=== PATIENT | female | born 1985 | race Two or more races ===

== ENCOUNTER 2020-01-10 12:40 | Emergency (ER) | payer MEDICAID ==
--- NOTE | 2020-01-10 13:11 | ER Document Report ---
ED Medical Screen (RME) - General Chief Complaint: Vag Bleeding, +preg <12wks Stated Complaint: VAGINAL BLEEDING Time Seen by Provider: 01/10/20 12:49 Mode of Arrival: Ambulatory Information source: Patient Notes: Patient presents G3, P2 about 9 weeks . Patient reports vaginal bleeding that started yesterday with low back pain. Patient denies any urinary symptoms. I have greeted and performed a rapid initial assessment of this patient. A comprehensive ED assessment and evaluation of the patient, analysis of test results and completion of the medical decision making process will be conducted by additional ED providers. - Related Data Allergies/Adverse Reactions: No Known Allergies Allergy (Verified 01/10/20 12:48) Physical Exam - Vital signs Vitals: Temp Pulse Resp BP Pulse Ox 97.7 F 102 H 16 130/70 H 99 01/10/20 12:45 01/10/20 12:45 01/10/20 12:45 01/10/20 12:45 01/10/20 12:45 - General General appearance: Appears well, Alert - Back Back: Tender - Lower lumbar tenderness Course - Re-evaluation Re-evalutation: 01/10/20 13:11 Attempted use of [employer] services via phone as well as [employer] device, [employer] laminator services not presently working, patient spouse translated in triage - Vital Signs Vital signs: Temp Pulse Resp BP Pulse Ox 97.7 F 102 H 16 130/70 H 99 01/10/20 12:45 01/10/20 12:45 01/10/20 12:45 01/10/20 12:45 01/10/20 12:45
[2020-01-10 13:31] LABS: ABSOLUTE EOSINOPHILS # (AUTO) 0.1 10^3/uL (0.0-0.6); ABSOLUTE LYMPHOCYTES (AUTO) 1.5 10^3/uL (0.5-4.7); ABSOLUTE MONOCYTES (AUTO) 0.3 10^3/uL (0.1-1.4); ABSOLUTE NEUT (AUTO) 4.9 10^3/uL (1.7-8.2); BASOPHILS % (AUTO) 0.5 % (0-2); HEMATOCRIT 34.5 % (36.0-47.0); HEMOGLOBIN 11.4 g/dL (12.0-15.5); LYMPHOCYTES % (AUTO) 21.3 % (13-45); MEAN CORPUSCULAR HEMOGLOBIN 25.5 pg (27.0-33.4); MEAN CORPUSCULAR VOLUME 77 fl (80-97); MONOCYTES % (AUTO) 4.8 % (3-13); PLATELET COUNT 253 10^3/uL (150-450); RED BLOOD COUNT 4.47 10^6/uL (3.72-5.28); RED CELL DISTRIBUTION WIDTH 15.5 % (11.5-14.0); SEGMENTED NEUTROPHILS % (AUTO) 72.4 % (42-78); TOTAL CELLS COUNTED % (AUTO) 100 %; WHITE BLOOD COUNT 6.8 10^3/uL (4.0-10.5)
[2020-01-10 14:25] LABS: APPEARANCE,URINE SLIGHTLY-CLOUDY; BILIRUBIN,URINE NEGATIVE (NEGATIVE); COLOR,URINE YELLOW; GLUCOSE, URINE NEGATIVE (NEGATIVE); KETONES,URINE NEGATIVE (NEGATIVE); LEUKOCYTE ESTERASE,URINE TRACE (NEGATIVE); NITRITE,URINE NEGATIVE (NEGATIVE); PROTEIN,URINE NEGATIVE (NEGATIVE); URINE SPECIFIC GRAVITY 1.009; UROBILINOGEN,URINE NEGATIVE mg/dL (<2.0)
--- NOTE | 2020-01-10 15:00 | RADIOLOGY REPORT (SQ) ---
EXAM DESCRIPTION: U/S [id number] TRNABD 1GES W/ODOP IMAGES COMPLETED DATE/TIME: 01/10/2020 2:23 pm REASON FOR STUDY: vag bleeding, low back pain COMPARISON: None. TECHNIQUE: Transabdominal static and realtime grayscale images acquired of the pelvis. Additional se lected spectral and color Doppler images recorded. All images stored on PACs. bHCG: Pending. CLINICAL DATES: LMP 11/09/2019. 8 weeks 6 days. LIMITATIONS: None. FINDINGS: FETUS: Single Living intrauterine . ULTRASOUND EGA: 9 weeks 1 day. ULTRASOUND JENNIFER: 08/13/2020 EFW: Not applicable less than 20 weeks. CRL: 2.4 cm. FHR: 189 beats per minute. SURVEY: Too early to assess. AMNIOTIC FLUID: Adequate amount. PLACENTA: Not yet developed due to early gestation. SUBCHORIONIC BLEED: No SIZE OF BLEED: Not applicable. UTERUS: Possible 3 x 3.4 x 2 cm uterine fibroid. CERVICAL LENGTH: 2.4 cm. Closed. RIGHT ADNEXA: Normal ovary with normal vascular flow. 3.7 x 2.8 x 2 cm. No adnexal free fluid. No adnexal masses. LEFT ADNEXA: Ovary not seen. No adnexal free fluid. No adnexal masses. FREE FLUID: None. OTHER: No other significant finding. IMPRESSION: LIVING INTRAUTERINE . EGA 9 weeks 1 day. Trimester of : First trimester - 0 to 13 weeks. TECHNICAL DOCUMENTATION: JOB ID: [id number] [email or web address]- All Rights Reserved rev-08/27 Reading location - IP/workstation name: [email or web address]
--- NOTE | 2020-01-10 15:25 | ER Document Report ---
ED General - General Chief Complaint: OB Problem (<20wks) Stated Complaint: VAGINAL BLEEDING Time Seen by Provider: 01/10/20 12:49 Mode of Arrival: Ambulatory - HPI Notes: Patient is a 34-year-old female, G3, P2 at approximately 9 weeks gestation, who presents to the emergency department for evaluation of vaginal bleeding and pain. She is had some lower abdominal cramping as well as some low back pain. She states that she has had some brown blood, particularly when she wipes after urination. She denies any fevers or chills. No dysuria, hematuria noted. No bright red bleeding. She states she really only noticed blood when she goes to the bathroom. She has not yet seen OB, she has an appointment next week with the health department - Related Data Allergies/Adverse Reactions: No Known Allergies Allergy (Verified 01/10/20 12:48) Home Medications: None Past Medical History - General Information source: Patient - Social History Smoking Status: Never Smoker Chew tobacco use (# tins/day): No Frequency of alcohol use: None Drug Abuse: None Family History: Reviewed & Not Pertinent Patient has homicidal ideation: No Past Surgical History: Reports: None Review of Systems - Review of Systems Constitutional: No symptoms reported EENT: No symptoms reported Cardiovascular: No symptoms reported Respiratory: No symptoms reported Gastrointestinal: No symptoms reported Genitourinary: No symptoms reported Female Genitourinary: See HPI Musculoskeletal: No symptoms reported Skin: No symptoms reported Neurological/Psychological: No symptoms reported -: Yes All other systems reviewed and negative Physical Exam - Vital signs Vitals: Temp Pulse Resp BP Pulse Ox 97.7 F 102 H 16 130/70 H 99 01/10/20 12:45 01/10/20 12:45 01/10/20 12:45 01/10/20 12:45 01/10/20 12:45 - Notes Notes: Vital signs reviewed, please refer to chart. Head is normocephalic, atraumatic. Pupils equal round, reactive to light. Neck is supple without meningismus. Heart is regular rate and rhythm. Lungs are clear to auscultation bilaterally. Abdomen is soft, nontender, normoactive bowel sounds throughout. Extremities without cyanosis, clubbing. Posterior calves are nontender. Peripheral pulses are equal. Skin is warm and dry. Patient is awake, alert, neurological exam is nonfocal. Course - Re-evaluation Re-evalutation: 01/10/20 15:23 Patient is a G3, P2 presents to the emergency department for evaluation of vaginal bleeding. She states is really only scant at this time, particularly when she goes to the bathroom. Her work appears unremarkable. She is told to follow pelvic rest instructions, follow-up with the health department then OB next week. She understands that if she starts having increased bleeding, increased pain, fevers, or any other new or concerning symptoms, she should return immediately to the emergency department for evaluation. - Vital Signs Vital signs: Temp Pulse Resp BP Pulse Ox 97.7 F 102 H 16 130/70 H 99 01/10/20 12:52 01/10/20 12:45 01/10/20 12:45 01/10/20 12:45 01/10/20 12:45 - Laboratory Result Diagrams: 01/10/20 13:15 Laboratory results interpreted by me: 01/10/20 01/10/20 01/10/20 13:15 13:15 13:50 Hgb 11.4 L Hct 34.5 L MCV 77 L MCH 25.5 L RDW 15.5 H Beta HCG, Quant 481710.00 H Urine Blood SMALL H Ur Leukocyte Esterase TRACE H Urine Ascorbic Acid 20 H - Diagnostic Test Radiology reviewed: Image reviewed, Reports reviewed Radiology results interpreted by me: 01/10/20 15:23 Obstetrics Ultrasound 01/10/20 13:10 IMPRESSION: LIVING INTRAUTERINE . EGA 9 weeks 1 day. Trimester of : First trimester - 0 to 13 weeks. Discharge - Discharge Clinical Impression: First trimester bleeding Condition: Stable Disposition: HOME, SELF-CARE Instructions: Bleeding During Early ([facility]) Additional Instructions: Stay well-hydrated. Pelvic rest. Follow-up with the health department/OB next week. If you develop bleeding heavier than 1 pad an hour, increased pain, fevers, or any other new or concerning symptoms, please return immediately to the emergency department for evaluation.
[2020-01-10 16:18] VITALS: BP 109/62
== END 2020-01-10 16:10 | disposition home or self-care (01) ==
LOC: ER 12:40
DX: O20.9 Hemorrhage in early pregnancy, unspecified (principal); R10.30 Lower abdominal pain, unspecified; M54.5 Low back pain; Z3A.09 9 weeks gestation of pregnancy
CPT/HCPCS: 36415; 76801; 81001; 84702; 85025; 86900; 86901; 99284

== ENCOUNTER 2020-01-27 12:29 | Emergency (ER) | payer SELFPAY ==
--- NOTE | 2020-01-27 12:49 | ER Document Report ---
ED Medical Screen (RME) - General Chief Complaint: Vaginal Bleeding Stated Complaint: VAGINAL BLEEDING Time Seen by Provider: 01/27/20 12:36 Mode of Arrival: Ambulatory Information source: Patient, Relative Notes: 34-year-old female presented to ED for complaint of increasing bleeding and cramping. She states she is 11 weeks . She has been spotting for about 2 weeks. She states she has soaked 2 pads today since morning. She states she is also wearing 3 pair of underwear because she does not always wear pads. She states that her cramping has increased to a level 4. She states she has passed a couple clots today. She states she does not smoke drink use any drugs. She does not work she lives with her family does not have any past medical or surgical history. She states she is 4 para 2 with 1 miscarriage. I have greeted and performed a rapid initial assessment of this patient. A comprehensive ED assessment and evaluation of the patient, analysis of test results and completion of medical decision making process will be conducted by an additional ED providers. - Related Data Allergies/Adverse Reactions: No Known Allergies Allergy (Verified 01/10/20 12:48) Past Medical History - Social History Chew tobacco use (# tins/day): No Drug Abuse: None Physical Exam - Vital signs Vitals: Temp Pulse Resp BP Pulse Ox 98.2 F 122 H 18 121/76 98 01/27/20 12:35 01/27/20 12:35 01/27/20 12:35 01/27/20 12:35 01/27/20 12:35 Course - Vital Signs Vital signs: Temp Pulse Resp BP Pulse Ox 98.2 F 122 H 18 121/76 98 01/27/20 12:35 01/27/20 12:35 01/27/20 12:35 01/27/20 12:35 01/27/20 12:35
[2020-01-27 13:38] LABS: APPEARANCE,URINE CLEAR; BILIRUBIN,URINE NEGATIVE (NEGATIVE); COLOR,URINE YELLOW; GLUCOSE, URINE NEGATIVE (NEGATIVE); KETONES,URINE NEGATIVE (NEGATIVE); LEUKOCYTE ESTERASE,URINE NEGATIVE (NEGATIVE); NITRITE,URINE NEGATIVE (NEGATIVE); PROTEIN,URINE 30 mg/dL (NEGATIVE); URINE SPECIFIC GRAVITY 1.002; UROBILINOGEN,URINE NEGATIVE mg/dL (<2.0)
--- NOTE | 2020-01-27 14:05 | RADIOLOGY REPORT (SQ) ---
EXAM DESCRIPTION: U/S 1TRIMESTER/1GEST W/DOPPLER IMAGES COMPLETED DATE/TIME: 01/27/2020 1:32 pm REASON FOR STUDY: 11 weeks bleeding cramping passing clots COMPARISON: None. TECHNIQUE: Transabdominal static and realtime grayscale images acquired of the pelvis. Additional se lected spectral and color Doppler images recorded. All images stored on PACs. bHCG: Not available CLINICAL DATES: Last menses 11/09/2019 (11 weeks 2 days) LIMITATIONS: None. FINDINGS: FETUS: Single Living intrauterine . ULTRASOUND EGA: 14 weeks 4 days ULTRASOUND JENNIFER: 08/13/2020 EFW: Not applicable less than 20 weeks. CRL: 4.8 cm FHR: 187 beats per minute. SURVEY: Too early to assess. AMNIOTIC FLUID: Adequate amount. PLACENTA: Not yet developed due to early gestation. SUBCHORIONIC BLEED: No SIZE OF BLEED: Not applicable. UTERUS: No masses. No anomalies. Uterus is 12 by by 9 cm CERVICAL LENGTH: 3 cm, Closed. RIGHT ADNEXA: Normal ovary with normal vascular flow. Right ovary 3.3 x 2.4 x 1.5 cm. No adnexal fr ee fluid.No adnexal masses. LEFT ADNEXA: Normal ovary with normal vascular flow. Left ovary 2 x 2.3 x 1.7 cm. No adnexal free f luid.No adnexal masses. FREE FLUID: None. OTHER: No other significant finding. IMPRESSION: LIVING INTRAUTERINE . EGA 14 weeks 4 days Trimester of : Second trimester - 13 weeks 1 day to 27 weeks 6 days. TECHNICAL DOCUMENTATION: JOB ID: [id number] [employer]- All Rights Reserved rev-08/27 Reading location - IP/workstation name: [id number]
[2020-01-27 14:18] LABS: ABSOLUTE LYMPHOCYTES (AUTO) 1.5 10^3/uL (0.5-4.7); ABSOLUTE MONOCYTES (AUTO) 0.6 10^3/uL (0.1-1.4); BASOPHILS % (AUTO) 0.5 % (0-2); EOSINOPHILS % (AUTO) 0.7 % (0-6); HEMOGLOBIN 11.5 g/dL (12.0-15.5); LYMPHOCYTES % (AUTO) 24.6 % (13-45); MEAN CORPUSCULAR HEMOGLOBIN 26.5 pg (27.0-33.4); MEAN CORPUSCULAR HGB CONC 34.8 g/dL (32.0-36.0); MEAN CORPUSCULAR VOLUME 76 fl (80-97); MONOCYTES % (AUTO) 9.6 % (3-13); PLATELET COUNT 221 10^3/uL (150-450); RED BLOOD COUNT 4.34 10^6/uL (3.72-5.28); RED CELL DISTRIBUTION WIDTH 15.9 % (11.5-14.0); SEGMENTED NEUTROPHILS % (AUTO) 64.6 % (42-78); TOTAL CELLS COUNTED % (AUTO) 100 %; WHITE BLOOD COUNT 6.2 10^3/uL (4.0-10.5)
[2020-01-27 14:35] LABS: ALKALINE PHOSPHATASE 91 U/L (38-126); ANION GAP 9 (5-19); ASPARTATE AMINO TRANSFERASE 25 U/L (14-36); BILIRUBIN,DIRECT 0.2 mg/dL (0.0-0.4); BILIRUBIN,TOTAL 0.5 mg/dL (0.2-1.3); BLOOD UREA NITROGEN 7 mg/dL (7-20); CALCIUM 9.7 mg/dL (8.4-10.2); CARBON DIOXIDE 22 mmol/L (22-30); CHLORIDE 105 mmol/L (98-107); GLUCOSE 96 mg/dL (75-110); POTASSIUM 3.8 mmol/L (3.6-5.0); TOTAL PROTEIN 7.6 g/dL (6.3-8.2)
--- NOTE | 2020-01-27 15:47 | ER Document Report ---
ED General - General Chief Complaint: Vaginal Bleeding Stated Complaint: VAGINAL BLEEDING Time Seen by Provider: 01/27/20 12:36 Primary Care Provider: BHARATI CHERRY [Primary Care Provider] - Follow up as needed Mode of Arrival: Ambulatory - [facility] Notes: 34-year-old female who is roughly 11 weeks G4, P2 with 1 miscarriage presents to the emergency room for vaginal spotting for the last 2 weeks but today she saturated 2 pads and 3 pairs of underwear so she came to the emergency room for further evaluation. In triage patient was ordered for an obstetric ultrasound and blood work. Patient follows with the [facility] in [place]. Denies fevers, chills, chest pain,palpitations, shortness of breath, dyspnea, nausea, vomiting, diarrhea, abdominal pain, hematuria,blurred vision, double vision, loss of vision, speech changes, LH, dizziness, syncope, headaches, wheezing, ST, URI, neck pain, weakness, bowel or bladder dysfunction, saddle anesthesia, numbness or tingling in bilateral upper or lower extremities equally, muscle paralysis, weakness in bilateral upper or lower extremities equally or rash. Denies IV drug use. - Related Data Allergies/Adverse Reactions: No Known Allergies Allergy (Verified 01/10/20 12:48) Past Medical History - General Information source: Patient, Relative - Social History Smoking Status: Never Smoker Chew tobacco use (# tins/day): No Drug Abuse: None Family History: Reviewed & Not Pertinent Review of Systems - Review of Systems Constitutional: No symptoms reported EENT: No symptoms reported Cardiovascular: No symptoms reported Respiratory: No symptoms reported Gastrointestinal: No symptoms reported Genitourinary: No symptoms reported Female Genitourinary: See HPI Musculoskeletal: No symptoms reported Skin: No symptoms reported Hematologic/Lymphatic: No symptoms reported Neurological/Psychological: No symptoms reported Physical Exam - Vital signs Vitals: Temp Pulse Resp BP Pulse Ox 98.2 F 122 H 18 121/76 98 01/27/20 12:35 01/27/20 12:35 01/27/20 12:35 01/27/20 12:35 01/27/20 12:35 - Notes Notes: MEDICATIONS: I agree with the patient medications as charted by the RN. ALLERGIES: I agree with the allergies as charted by the RN. PAST MEDICAL HISTORY/PAST SURGICAL HISTORY: Reviewed and agree as charted by RN. SOCIAL HISTORY: Reviewed and agree as charted by RN. FAMILY HISTORY: No significant familial comorbid conditions directly related to patient complaint EXAM: Reviewed vital signs as charted by RN. PHYSICAL EXAMINATION: reviewed vital signs by RN GENERAL: Well-appearing, well-nourished and in no acute distress. HEAD: Atraumatic, normocephalic. EYES: Pupils equal round and reactive to light, extraocular movements intact, conjunctiva are normal. ENT: Nares patent, oropharynx clear without exudates. Moist mucous membranes. NECK: Normal range of motion, supple without lymphadenopathy LUNGS: Breath sounds clear to auscultation bilaterally and equal. No wheezes rales or rhonchi. HEART: Regular rate and rhythm without murmurs ABDOMEN: Soft, nontender, nondistended abdomen. No guarding, no rebound. No masses appreciated. Female : External genitalia without erythema, exudate or discharge. Vaginal vault is without discharge. Cervix is of normal color without lesion. Uterus is noted to be of normal size and nontender. No cervical motion tenderness is seen. No masses are palpated. mild blood in the vaginal vault without clots, os slightly open, no adnexal tenderness or mass Musculoskeletal: Normal range of motion, no pitting or edema. No cyanosis. NEUROLOGICAL: Cranial nerves grossly intact. Normal speech, normal gait. Normal sensory, motor exams PSYCH: Normal mood, normal affect. SKIN: Warm, Dry, normal turgor, no rashes or lesions noted. Course - Re-evaluation Re-evalutation: 01/27/20 17:19 CBC does show some mild heme anemia, no leukocytosis, CBC negative for hepatic or renal dysfunction, no electrolyte disturbances. Serum hCG 141,150./Check ultrasound shows a heart rate of 187 and is 14 weeks and 4 days. Pelvic exam does show mild amount of vaginal bleeding with slightly open cervical os, wet mount did show that patient has bacterial vaginosis, trichomonas and yeast negative. GC pending. Consulted with Dr. aCmila Duenas, [facility] [employer] [facility] on-call at 1700, she did advise pelvic bedrest and she will see her in the office on Wednesday. Advised to also treat her per standard of care for the bacterial vaginosis. Does not recommend any repeat hCG or ultrasound at this moment. Discussed with patient that she does need to avoid any sexual intercourse, bathing and to sit and lay as much as possible until her follow-up appointment this Wednesday, which she does need to call for to make to be seen by Dr. Duenas in the office. Teenager daughter at bedside and she also verbalized understa nding of this plan of care as well as the mother verbalizing an understanding of this plan of care. All questions and concerns were answered by this provider. After performing a Medical Screening Examination, I estimate there is LOW risk for ACUTE APPENDICITIS, BOWEL OBSTRUCTION, ACUTE CHOLECYSTITIS, PERFORATED DIVERTICULITIS, INCARCERATED HERNIA, PANCREATITIS, PELVIC INFLAMMATORY DISEASE, PERFORATED ULCER, ECTOPIC , or TUBO-OVARIAN ABSCESS, thus I consider the discharge disposition reasonable. Also, there is no evidence or peritonitis, sepsis, or toxicity. I have reevaluated this patient multiple times and no significant life threatening changes are noted. The patient and I have discussed the diagnosis and risks, and we agree with discharging home with close follow-up with the understanding that symptoms and presentations can change. We also discussed returning to the Emergency Department immediately if new or worsening symptoms occur. We have discussed the symptoms which are most concerning (e.g., bloody stool, fever, changing or worsening pain, vomiting) that necessitate immediate return. - Vital Signs Vital signs: Temp Pulse Resp BP Pulse Ox 98.2 F 122 H 18 121/76 98 01/27/20 12:35 01/27/20 12:35 01/27/20 12:35 01/27/20 12:35 01/27/20 12:35 - Laboratory Result Diagrams: 01/27/20 14:00 01/27/20 14:00 Laboratory results interpreted by me: 01/27/20 01/27/20 01/27/20 12:55 14:00 14:00 Hgb 11.5 L Hct 33.0 L MCV 76 L MCH 26.5 L RDW 15.9 H Sodium 136.3 L Creatinine 0.35 L Beta HCG, Quant 473698.00 H Urine Protein 30 H Urine Blood LARGE H Discharge - Discharge Clinical Impression: Vaginal bleeding before 22 weeks gestation, Condition: Stable Disposition: HOME, SELF-CARE Instructions: Vaginosis, Bacterial ([facility]), Metronidazole ([facility]) Additional Instructions: You are 14 weeks and 4 days, your baby has a strong heartbeat. The [facility] [employer] would like you to do pelvic rest, to lay around as much as possible, avoid any sexual intercourse or baths. You do have bacterial vaginosis which needs to be treated with Flagyl twice a day for 7 days. This is not an STI. These continue to take her prenatals. The [facility] would like you to follow-up with the office this upcoming Wednesday, please call to make an appointment, Dr. Duenas is expecting your visit. Please return to the emergency room if you experience any worsening bleeding, pain, fever, chest pain shortness of breath etc. Return immediately for any new or worsening symptoms. Follow up with primary care provider, call tomorrow to make followup appointment. Prescriptions: Metronidazole [Flagyl] 500 mg PO BID #14 tablet Referrals: BHARATI CHERRY [Primary Care Provider] - Follow up as needed CAMILA DUENAS MD [ACTIVE STAFF] - 01/29/20 SHENG MARCELINO MD [COMMUNITY BASED STAFF] - Follow up as needed
[2020-01-27] MEDS ORDERED: NORMAL SALINE 1000 ML 1,000 ML IV ONE (15:48)
[2020-01-27 16:30] LABS: RBCS (WET MOUNT) 4+ RBCS SEEN; T.VAGINALIS (WET MOUNT) NO TRICHOMONAS SEEN; WBCS (WET MOUNT) RARE WBCS SEEN; YEAST (WET MOUNT) NO YEAST SEEN
[2020-01-27 17:55] LABS: CHLAM PCR NOT DETECTED (NOT DETECT)
[2020-01-27 17:58] VITALS: BP 112/63
== END 2020-01-27 18:04 | disposition home or self-care (01) ==
LOC: ER 12:29
DX: O46.92 Antepartum hemorrhage, unspecified, second trimester (principal); Z3A.14 14 weeks gestation of pregnancy
CPT/HCPCS: 99284; 96360; 86900; 86901; 36415; 87086; 87210; 84702; 85025; 80053; 81001; 87491; 87591; 76801; 93976; J7030

== ENCOUNTER → 2020-03-29 | Outpatient (CLI) | payer SELFPAY ==
--- NOTE | 2020-03-29 17:11 | RADIOLOGY REPORT (SQ) ---
EXAM DESCRIPTION: U/S OB 14+ TRNABD 1GES W/O DOP IMAGES COMPLETED DATE/TIME: 03/29/2020 4:36 pm REASON FOR STUDY: (Z34.82)ENCOUNTER FOR SUPRVSN OF NORMAL , SECOND TRIMESTER Z34.[address] FOR SUPRVSN OF NORMAL , SECOND TRI COMPARISON: 01/10/2020 TECHNIQUE: Static and Dynamic grayscale imaging performed of gravid uterus using transabdominal appr oach. Additional selected color Doppler and spectral images recorded. All stored on PACS. LIMITATIONS: None. FINDINGS: FETUSES SEEN:1 EGA: 19 weeks 4 days Calculated using BPD,FL,HC,AC documented on images. No discrepancy with clinica l dates. JENNIFER: 08/19/2020 EFW: 289 g +/- 43 grams PERCENTILE: Not applicable. Fetus less than or equal to 20 weeks gestation. MARYLOU: LVP--4.9 cm. PLACENTA: Fundal. PRESENTATION: Breech. ANATOMY: HEART RATE: 157 beats per minute. FOUR CHAMBER HEART: Visualized. THREE VESSEL CORD: Yes. CORD INSERTION: Visualized. KIDNEYS AND BLADDER: Visualized. Appear normal. STOMACH: Visualized. Appears normal. SPINE: Normal as visualized. BRAIN AND LATERAL VENTRICLES: Visualized. Appear normal. OTHER: No other significant finding. MATERNAL ADNEXA: Maternal ovaries not visualized. CERVICAL LENGTH: 5.2 cm Closed. OTHER: No other significant finding. IMPRESSION: LIVING INTRAUTERINE . ESTIMATED GESTATIONAL AGE: 19 weeks 4 days NO VISUALIZED ANOMALIES. Trimester of : Second trimester - 13 weeks 1 day to 27 weeks 6 days. TECHNICAL DOCUMENTATION: JOB ID: [id number] [employer]- All Rights Reserved Reading location - IP/workstation name: [email or web address]
== END ==
LOC: RAD 15:00
PROVIDERS: ATTEND Midwife
DX: Z34.82 Encounter for supervision of other normal pregnancy, second trimester (principal); Z3A.19 19 weeks gestation of pregnancy
CPT/HCPCS: 76805